=== PATIENT | female | born 1965 | race Caucasian/White ===

== ENCOUNTER 2019-03-22 13:07 | Emergency (ER) | payer OTHER ==
[~2019-03-22] VITALS: Ht 152.4 cm; Wt 71.7 kg
[2019-03-22] MEDS ORDERED: SYNTHROID75 MCG PO (13:12)
== END 2019-03-22 19:25 | disposition home or self-care (01) ==
LOC: ER 13:07
DX: R51 Headache (principal)

== ENCOUNTER 2023-03-22 13:53 | Outpatient (CLI) | payer OTHER ==
[~2023-03-22 13:53] MED LIST: SYNTHROID75 MCG PO
== END 2023-03-22 13:56 | disposition home or self-care (01) ==
LOC: SONOGRAMA 13:53
PROVIDERS: ATTEND Pathology Anatomic Pathology & Clinical Pathology
DX: E04.1 Nontoxic single thyroid nodule (principal)